=== PATIENT | female | born 1980 | race African-American/Black ===

== ENCOUNTER 2019-01-17 08:11 | Outpatient (CLI) | payer OTHER | END 2019-01-17 19:21 | disposition home or self-care (01) | LOC: RESP 08:11 | DX: R06.02 Shortness of breath (principal) ==

== ENCOUNTER 2019-04-18 15:44 | Outpatient (CLI) | payer OTHER ==
[2019-04-18 16:02] LABS: PLATELET COUNT 312 K/uL (152-353)
== END 2019-04-18 19:42 | disposition home or self-care (01) ==
LOC: LABW 15:44
PROVIDERS: Nurse Practitioner Family
DX: J45.50 Severe persistent asthma, uncomplicated (principal)
CPT/HCPCS: 36415; 85007; 85027